=== PATIENT | male | born 1965 | race Caucasian/White ===

== ENCOUNTER → 2017-03-19 | Outpatient (CLI) | payer BC ==
--- NOTE | ~2017-03-19 | CT14 ---
[facility] A Service of [facility] RADIOLOGY TEXT RESULTS PATIENT: JESS CALDERON LOCATION: [facility] : 61 UNIT #: [id number] AGE: [address]: Goyo Lopes MD SEX: M ORDER DR: [id number] [facility] [address] [place], [place] [address] [id number] O MR#: [id number] [facility] #: [id number] NAME: JESS CALDERON : 1965 SEX: M STUDY DATE/TIME: 03/19/2017 12:04 UNIT: [facility] ROOM: STUDY DESCRIPTION: CT Angio Abdomen and Pelvis Attending Physician: Goyo Lopes M.D. Referring Physician: Goyo Lopes M.D. Ordering Physician: Goyo Lopes M.D. Primary Care Physician: Goyo Lopes M.D. MEDICAL IMAGING REPORT This report is preliminary unless electronic signature is present EXAM CT angiogram of the abdomen and pelvis. INDICATIONS Abdominal aortic aneurysm demonstrated on outside imaging. Study is requested to evaluate the abdominal aorta. TECHNIQUE CT of the abdomen and pelvis was performed following the administration of IV contrast. CT angiogram protocol. Coronal, sagittal and 3-D reformatted images were obtained. COMPARISON There are no comparison studies available at this time. This CT exam was performed with one or more of the following radiation dose reduction techniques: automatic exposure control, adjustment of mA and/or kV according to patient size, and iterative reconstruction. FINDINGS CT ANGIOGRAM: There is minimal ectasia of the infrarenal abdominal aorta measuring about 2.6 cm in greatest AP dimension. There is mild aneurysmal dilatation of the left common iliac artery measuring 2 cm in greatest dimension and ectasia of the right common iliac artery measuring about 1.7-1.8 cm in greatest dimension. There is ectasia of the left internal iliac artery. There is a focal moderate to severe narrowing involving the origins of both internal iliac arteries. Mild narrowing of the celiac artery. Mild narrowing of the superior mesenteric artery. 2 left renal arteries. Single right renal artery. No significant renal artery narrowing. Inferior mesenteric artery is patent. CT OF THE ABDOMEN: Lung bases are clear. The liver, gallbladder and spleen are unremarkable. Kidneys unremarkable. Left adrenal gland STS. [facility] A Service of [facility] RADIOLOGY TEXT RESULTS PATIENT: JESS CALDERON LOCATION: [facility] : 61 UNIT #: [id number] AGE: [address]: Goyo Lopes MD SEX: M ORDER DR: unremarkable. 2.6 cm low density right adrenal gland nodule probably represents an adenoma. The pancreas is unremarkable. PELVIS: Colon is unremarkable. Normal appendix. No free fluid. Small fat-containing bilateral inguinal hernias. The bone windows are unremarkable. IMPRESSION 1. Ectasia of the infrarenal abdominal aorta measuring 2.6 cm in greatest AP dimension. 2. Mild aneurysmal dilatation of the left common iliac artery measuring 2 cm in greatest dimension and ectasia of the right common iliac artery measuring about 1.7 to 1.8 cm in greatest dimension. 3. Additional findings as described above. Dictated by... Adis Huynh M.D. THIS IS AN ELECTRONICALLY VERIFIED REPORT Adis Huynh M.D. at 03/22/2017 12:31 PM ERIC/darrell TD: 03/19/2017 18:30 JOB #: [id number] MEDICAL IMAGING REPORT Page 1 of 1 COPY
== END | disposition home or self-care (01) ==
LOC: CCAT 11:28
DX: I71.4 Abdominal aortic aneurysm, without rupture (principal); I72.3 Aneurysm of iliac artery; I77.1 Stricture of artery; E27.8 Other specified disorders of adrenal gland; K40.20 Bilateral inguinal hernia, without obstruction or gangrene, not specified as recurrent
CPT/HCPCS: 74174; Q9967

== ENCOUNTER → 2017-04-09 | Outpatient (CLI) | payer BC ==
--- NOTE | ~2017-04-09 | US37 ---
[facility] A Service of [facility] RADIOLOGY TEXT RESULTS PATIENT: JESS CALDERON LOCATION: [facility] : 61 UNIT #: [id number] AGE: [address]: Jeff Viveros MD SEX: M ORDER DR: [id number] [facility] [address] [place], [place] [address] [id number] O MR#: [id number] [facility] #: [id number] NAME: JESS CALDERON : 1965 SEX: M STUDY DATE/TIME: 04/09/2017 14:19 UNIT: [facility] ROOM: STUDY DESCRIPTION: US Carotid W/Doppler Bilateral Attending Physician: Jeff Viveros M.D. Referring Physician: Jeff Viveros M.D. Ordering Physician: Jeff Viveros M.D. Primary Care Physician: Goyo Lopes M.D. MEDICAL IMAGING REPORT This report is preliminary unless electronic signature is present EXAM Bilateral carotid Doppler, 04/09/17 HISTORY Carotid bruits FINDINGS The right common carotid artery has a small amount of dense plaque. There is a large amount of dense plaque in the right carotid bulb. The remainder of the right internal and external carotid artery are patent with minimal plaque. Peak systolic velocity in the distal right internal carotid artery is 99 cm/sec with an end diastolic velocity of 23 cm/sec. The ICA to CCA ratio on the right is 1.01. Peak systolic velocity in the right external carotid artery is 99 cm/sec. The right vertebral artery is patent with antegrade flow. The left common carotid artery has a small amount of dense plaque. The left internal and external carotid arteries are patent with minimal plaque. Peak systolic velocity in the distal left internal carotid artery is 86 cm per second with an end diastolic velocity of 29 cm/sec. The ICA/CCA ratio on the left is 0.70. Peak systolic velocity in the left external carotid artery is 109 cm/sec. The left vertebral artery is patent with antegrade flow. IMPRESSION Small amount of plaque, but no significant stenosis (less than 50%) in the internal and external carotid arteries bilaterally. Patent vertebral arteries bilaterally with antegrade flow. Dictated by... Reji Gaston M.D. [facility] A Service of [facility] RADIOLOGY TEXT RESULTS PATIENT: JESS CALDERON LOCATION: [facility] #: [id number] : [birth year] UNIT #: [id number] AGE: [address]: Jeff Viveros MD SEX: M ORDER DR: THIS IS AN ELECTRONICALLY VERIFIED REPORT Reji Gaston M.D. at 04/22/2017 11:45 AM MAYO/jennifer TD: 04/09/2017 21:43 JOB #: [id number] MEDICAL IMAGING REPORT Page 1 of 1 COPY
== END | disposition home or self-care (01) ==
LOC: CNIV 13:32
DX: R09.89 Other specified symptoms and signs involving the circulatory and respiratory systems (principal); I71.4 Abdominal aortic aneurysm, without rupture; E78.5 Hyperlipidemia, unspecified
CPT/HCPCS: 93880